=== PATIENT | male | born 2000 | race African-American/Black ===

== ENCOUNTER 2025-04-24 15:36 | Emergency (ER) | payer OTHER ==
[~2025-04-24] VITALS: Ht 185.4 cm; Wt 90.2 kg
[~2025-04-24 15:36] MED LIST: VENTAER INH
[2025-04-24 15:39] VITALS: TEMP 98
[2025-04-24 20:15] VITALS: BP 126/71; O2SAT 100
[2025-04-24] MEDS ORDERED: VENTAER INH (21:38)
== END 2025-04-24 21:56 | disposition home or self-care (01) ==
LOC: M ED 15:36
DX: Z76.0 Encounter for issue of repeat prescription (principal)

== ENCOUNTER 2025-06-30 15:56 | Emergency (ER) | payer OTHER ==
[~2025-06-30] VITALS: Ht 185.4 cm; Wt 78.9 kg
[2025-06-30] MEDS ORDERED: VENTAER INH (17:46)
[2025-06-30] MEDS ORDERED: BREAMIS10 MC (17:46)
[2025-06-30 17:53] VITALS: BP 131/179; TEMP 97.8; O2SAT 100
== END 2025-06-30 17:54 | disposition home or self-care (01) ==
LOC: M ED 15:56
DX: Z76.0 Encounter for issue of repeat prescription (principal)

== ENCOUNTER 2025-09-23 11:19 | Emergency (ER) | payer OTHER ==
[~2025-09-23] VITALS: Ht 185.4 cm; Wt 77.0 kg
[~2025-09-23 11:19] MED LIST changes: +BREAMIS10 MC
[2025-09-23 11:21] VITALS: BP 134/62; TEMP 98.5; O2SAT 98
== END 2025-09-23 13:45 | disposition home or self-care (01) ==
LOC: M ED 11:19
DX: S63.92XA Sprain of unspecified part of left wrist and hand, initial encounter (principal); W21.89XA Striking against or struck by other sports equipment, initial encounter; Y93.71 Activity, boxing; Y92.39 Other specified sports and athletic area as the place of occurrence of the external cause; Y99.9 Unspecified external cause status; J45.909 Unspecified asthma, uncomplicated